=== PATIENT | female | born 1975 | race American Indian/Alaskan Native ===

== ENCOUNTER 2017-11-24 23:46 | Emergency (ER) | payer SELFPAY ==
[2017-11-24 23:51] VITALS: BP 115/74
[2017-11-25 00:59] LABS: HCG Qualitative,Urine Negative (Negative)
[2017-11-25 01:03] LABS: Bilirubin,Urine NEG (Negative); Blood,Urine NEG (Negative); Color,Urine Yellow (Yellow); Mucus,Urine 3+ /HPF; Protein,Urine <15 mg/dL mg/dL (Negative)
--- NOTE | 2017-11-25 03:46 | Emergency Department Report ---
<ELIOT MOORE - Last Filed: 11/25/17 05:01> ED Female HPI - General Chief complaint: Urogenital-Female Stated complaint: VAG DISCHARGE Time Seen by Provider: 11/25/17 02:57 Source: patient Mode of arrival: Ambulatory Limitations: No Limitations - History of Present Illness Initial comments: This is a 41-year-old female here report that she is having an thin yellow discharge that has fishy odor. She says she's had this in the past and it smells like bacterial vaginosis. She is not concerned for any sexually transmitted disease. Denies any vaginal bleeding and. Denies any abdominal pain or back pain. Denies any fever or chills. Pain is 0-10. Denies any urinary burning, frequency or urgency. No [id number] medication taken and she is here to be evaluated. She also reports that she's been dilution and she noticed that she gets infection when she douches. MD Complaint: vaginal discharge Onset/Timin -: days(s) Severity scale (0 -10): 0 Are you Now?: No Last Menstrual Period: 11/17/17 EDC: 08/24/18 - Related Data Sexually active: No Previous Rx's Medication Instructions Recorded Last Taken Type metroNIDAZOLE [Flagyl] 500 mg PO Q12HR #14 tab 11/27/17 Unknown Rx Allergies Allergy/AdvReac Type Severity Reaction Status Date / Time codeine Allergy Unknown Verified 11/24/17 23:52 ED Review of Systems ROS: Stated complaint: VAG DISCHARGE Other details as noted in HPI Constitutional: denies: chills, fever ENT: denies: throat pain Respiratory: denies: cough, shortness of breath, wheezing Cardiovascular: denies: chest pain, palpitations Gastrointestinal: denies: abdominal pain, nausea, vomiting, diarrhea Genitourinary: discharge. denies: urgency, dysuria, frequency, hematuria, abnormal menses Musculoskeletal: denies: back pain Skin: denies: rash, lesions ED Past Medical Hx - Past Medical History Previous Medical History?: No - Surgical History Past Surgical History?: No - Family History Family history: no significant - Social History Smoking Status: Current Every Day Smoker Substance Use Type: Alcohol - Medications Home Medications: Home Medications Medication Instructions Recorded Confirmed Last Taken Type metroNIDAZOLE [Flagyl] 500 mg PO Q12HR #14 tab 11/27/17 Unknown Rx ED Physical Exam - General Limitations: No Limitations General appearance: alert, in no apparent distress - Head Head exam: Present: atraumatic, normocephalic, normal inspection - Eye Eye exam: Present: normal appearance, PERRL, EOMI Pupils: Present: normal accommodation - ENT ENT exam: Present: normal exam, normal orophraynx - Neck Neck exam: Present: normal inspection, full ROM. Absent: tenderness, lymphadenopathy - Respiratory Respiratory exam: Present: normal lung sounds bilaterally. Absent: respiratory distress, chest wall tenderness - Cardiovascular Cardiovascular Exam: Present: regular rate, normal rhythm, normal heart sounds - GI/Abdominal GI/Abdominal exam: Present: soft, normal bowel sounds. Absent: distended, tenderness - External exam: Present: normal external exam Speculum exam: Present: vaginal discharge, cervical discharge. Absent: erythema , vaginal bleeding, foreign body, tissue, laceration Bi-manual exam: Present: normal bi-manual exam. Absent: cervical motion tendernes, adnexal tenderness, adnexal mass, uterine enlargement, uterine tenderness - Extremities Exam Extremities exam: Present: normal inspection, full ROM, normal capillary refill , other (clubbing, cyanosis or edema. Positive pulses all extremities and no neurovascular compromise). Absent: tenderness, pedal edema, joint swelling, calf tenderness - Back Exam Back exam: Present: normal inspection, full ROM. Absent: tenderness, CVA tenderness (R), CVA tenderness (L) - Neurological Exam Neurological exam: Present: alert, oriented X3, normal gait - Psychiatric Psychiatric exam: Present: normal affect, normal mood - Skin Skin exam: Present: warm, dry, intact, normal color. Absent: rash ED Course Vital Signs 11/24/17 11/24/17 23:44 23:52 Temperature 98.5 F 98.5 F Pulse Rate 86 85 Respiratory 18 18 Rate Blood Pressure 115/74 115/74 O2 Sat by Pulse 99 99 Oximetry - Reevaluation(s) Reevaluation #1: 11/25/17 05:06 Patient stable throughout ED course ED Medical Decision Making - Lab Data Lab Results 11/25/17 Range/Units 00:15 Urine Color Yellow (Yellow) Urine Turbidity Clear (Clear) Urine pH 5.0 (5.0-7.0) Ur Specific [place] 1.026 (1.003-1.030) Urine Protein <15 mg/dl (Negative) mg/dL Urine Glucose (UA) Neg (Negative) mg/dL Urine Ketones Neg (Negative) mg/dL Urine Blood Neg (Negative) Urine Nitrite Neg (Negative) Ur Reducing Substances Not Reportable Urine Bilirubin Neg (Negative) Urine Ictotest Not Reportable Urine Urobilinogen 4.0 (<2.0) mg/dL Ur Leukocyte Esterase Neg (Negative) Urine WBC (Auto) 2.0 (0.0-6.0) /HPF Urine RBC (Auto) 2.0 (0.0-6.0) /HPF U Epithel Cells (Auto) 11.0 (0-13.0) /HPF Urine Mucus 3+ /HPF Urine HCG, Qual Negative (Negative) Wet prep shows positive clue cells and greater than 20%. Negative Trichomonas and negative use. Gonorrhea and chlamydia pending - Medical Decision Making ED Course: This is a 41-year-old female who reports that she believes that she has bacterial vaginosis. She is having vaginal discharge and has no concern for STDs or . Patient here to be evaluated. Patient was examined by myself. exam normal to include pelvic and bimanual except she has cervical and vaginal discharge with fishy odor. Abdominal back exam is normal. Patient has urinalysis which is normal, wet prep positive for greater than 20% clue cell, negative for Trichomonas and negative for yeast. test is negative. Gonorrhea and chlamydia test pending. Discussed results of tests the patient and she voiced understanding. A/P 1: Vaginal discharge-gonorrhea and chlamydia test is pending, positive greater than 20% clue cells, negative trichomoniasis and yeast. Urinalysis and test is negative 2: Bacterial vaginosis-patient discharged home with prescription for Flagyl and to follow-up with primary care and/or [facility] in 3-5 days. Encouraged to refrain from using dilution and to take probiotics to restore luther to vaginal area PT educated on labs, culture, diagnosis, medication. patient discharged home in stable condition with prescription for a Flagyl. I discussed her to follow up with her primary care and/or [facility] in 3-5 days and she voiced understanding. Vital signs are stable she is afebrile. Patient is nontoxic in appearance. Critical care attestation.: If time is entered above; I have spent that time in minutes in the direct care of this critically ill patient, excluding procedure time. ED Disposition Disposition: DC-01 TO HOME OR SELFCARE Is pt being admited?: No Does the pt Need Aspirin: No Condition: Stable Instructions: Bacterial Vaginosis (ED) Additional Instructions: Please follow up with [facility] DIRECTOR in 3-5 days Refrain from douching Prescriptions: metroNIDAZOLE [Flagyl] 500 mg PO Q12HR #14 tab Referrals: PRIMARY CARE, [Primary Care Provider] - 3-5 Days ARNALDO JAMES MD [Staff Physician] - 3-5 Days Forms: STI Treatment and Prevention <MARCO ANTONIO LOZA - Last Filed: 11/27/17 17:39> ED Medical Decision Making - Medical Decision Making Patient lost her prescription therefore I rewrote her for Flagyl 500 mg twice a day 14 tablets
== END 2017-11-25 05:12 | disposition home or self-care (01) ==
LOC: ED 23:46
DX: N89.8 Other specified noninflammatory disorders of vagina (principal); F17.200 Nicotine dependence, unspecified, uncomplicated; Z88.6 Allergy status to analgesic agent
CPT/HCPCS: 81001; 81025; 87210; 87591; 99283

== ENCOUNTER 2019-07-01 16:27 | Emergency (ER) | payer SELFPAY ==
--- NOTE | 2019-07-01 18:58 | Emergency Department Report ---
Blank Doc - Documentation Documentation: 43-year-old female that presents with vaginal discharge and itching. This initial assessment/diagnostic orders/clinical plan/treatment(s) is/are subject to change based on patient's health status, clinical progression and re- assessment by fellow clinical providers in the ED. Further treatment and workup at subsequent clinical providers discretion. Patient/guardians urged not to elope from the ED as their condition may be serious if not clinically assessed and managed. Initial orders include: 1- Patient sent to [facility] for further evaluation and treatment 2- UA 3- pelvic exam to be done
[2019-07-01 19:00] VITALS: BP 130/91
--- NOTE | 2019-07-01 19:57 | Emergency Department Report ---
HPI - General Chief Complaint: Urogenital-Female Time Seen by Provider: 07/01/19 18:57 - HPI HPI: Room 37 The patient is a 43-year-old female present with a chief complaint of vaginal irritation. The patient states yesterday she developed vaginal itching and burning in addition to a white vaginal discharge. Patient denies abdominal pain or fever. Patient denies dysuria or hematuria. Patient believes she has bacterial vaginosis ED Past Medical Hx - Past Medical History Previous Medical History?: No - Surgical History Past Surgical History?: No - Family History Family history: no significant - Social History Smoking Status: Former Smoker (None x1 year) Substance Use Type: None (Denies illicit drug use) - Medications Home Medications: Home Medications Medication Instructions Recorded Confirmed Last Taken Type metroNIDAZOLE [Flagyl] 500 mg PO Q12HR #14 tab 11/27/17 Unknown Rx ED Review of Systems ROS: Stated complaint: BV Other details as noted in HPI Constitutional: denies: fever Eyes: denies: eye pain ENT: denies: throat pain Respiratory: no symptoms reported Cardiovascular: denies: chest pain Endocrine: no symptoms reported Gastrointestinal: denies: abdominal pain Genitourinary: discharge. denies: dysuria, hematuria, abnormal menses Neurological: denies: headache Physical Exam - Physical Exam Vital Signs: Vital Signs 07/01/19 18:57 Temperature 98.7 F Pulse Rate 87 Respiratory 16 Rate Blood Pressure 130/91 O2 Sat by Pulse 100 Oximetry Physical Exam: GENERAL: The patient is well-developed well-nourished female sitting on stretcher not appear to be in acute distress. [] HEENT: Normocephalic. Atraumatic. Extraocular motions are intact. Patient has moist mucous membranes. NECK: Supple. Trachea midline CHEST/LUNGS: Clear to auscultation. There is no respiratory distress noted. HEART/CARDIOVASCULAR: Regular. There is no tachycardia. There is no gallop rub or murmur. ABDOMEN: Abdomen is soft, nontender. Patient has normal bowel sounds. There is no abdominal distention. SKIN: There is no rash. There is no edema. There is no diaphoresis. NEURO: The patient is awake, alert, and oriented. The patient is cooperative. The patient has normal speech MUSCULOSKELETAL: There is no evidence of acute injury. PELVIC: Small to moderate amount of yellow discharge present. ED Course Vital Signs 07/01/19 18:57 Temperature 98.7 F Pulse Rate 87 Respiratory 16 Rate Blood Pressure 130/91 O2 Sat by Pulse 100 Oximetry ED Medical Decision Making - Lab Data Laboratory Tests 07/01/19 19:51 Urine Color Yellow Urine Turbidity Clear Urine pH 5.0 Ur Specific [place] 1.035 H Urine Protein 30 mg/dl Urine Glucose (UA) Negative Urine Ketones Negative Urine Blood Negative Urine Nitrite Negative Ur Reducing Substances Not Reportable Urine Bilirubin Negative Urine Ictotest Not Reportable Urine Urobilinogen 4.0 Ur Leukocyte Esterase Negative Urine WBC (Auto) 1.0 Urine RBC (Auto) 2.0 U Epithel Cells (Auto) 2.0 Urine Mucus 3+ Urine HCG, Qual Negative - Differential Diagnosis Bacterial vaginosis, urethritis, UTI, vaginal candidiasis Critical care attestation.: If time is entered above; I have spent that time in minutes in the direct care of this critically ill patient, excluding procedure time. ED Disposition Clinical Impression: Vaginal discharge Disposition: DC-01 TO HOME OR SELFCARE Is pt being admited?: No Does the pt Need Aspirin: No Condition: Stable Instructions: Sexually Transmitted Diseases (ED), Safe Sex (ED) Additional Instructions: Return to the emergency department should you develop worsening symptoms, inability to tolerate food or liquids, high fever or any other concerns Referrals: PRIMARY CARE [Primary Care Provider] - 3-5 Days Time of Disposition: 21:42
[2019-07-01 20:10] LABS: Mucus,Urine 3+ /HPF
[2019-07-01 20:11] LABS: HCG Qualitative,Urine Negative (Negative)
[2019-07-01 20:20] LABS: Color,Urine Yellow (Yellow)
[2019-07-01 20:21] LABS: Bilirubin,Urine Negative (Negative); Blood,Urine Negative (Negative)
[2019-07-01] MEDS ORDERED: LIDOCAINE-MPF (1%) 10 MG/1 ML VIAL 5 ML INFILTRATI ONE (21:41)
[2019-07-01] MEDS ORDERED: AZITHROMYCIN 1 GM ORAL PWDR PACKET PO ONE (21:41)
== END 2019-07-01 22:25 | disposition home or self-care (01) ==
LOC: ED 16:27
DX: N89.8 Other specified noninflammatory disorders of vagina (principal)
CPT/HCPCS: 81001; 81025; 87086; 87210; 87591; 96372; 99284; J0696